=== PATIENT | female | born 1935 | race Caucasian/White ===

== ENCOUNTER 2022-08-16 20:04 | Inpatient (IN) | payer MEDICARE, OTHER ==
[~2022-08-16] VITALS: Ht 147.3 cm; Wt 65.8 kg
--- NOTE | 2022-08-16 21:15 | NUR ---
BIB DAUGHTER FOR C/O DEPRESSION AND CRYING. PT AWAKE; FARSI SPEAKING. TOLERATING R/A WELL WITH NO RESP DISTRESS. RR EVEN AND NON LABORED. AMBULATORY WITH STEADY GAIT. SAFETY MEASURES IN PLACE.
--- NOTE | 2022-08-16 21:34 | NUR ---
SLATE PICKER AT PT'S BEDSIDE
[2022-08-16 21:53] LABS: BASOPHILS % (AUTO) 0.3 % (0.0-2.0); HEMATOCRIT 42 % (33-45); HEMOGLOBIN 13.4 g/dL (11.5-14.8); LYMPHOCYTES # (AUTO) 1.8 K/uL (0.8-4.8); LYMPHOCYTES % (AUTO) 26.2 % (20.0-44.0); MEAN CORPUSCULAR HGB CONC 32 g/dl (31.0-36.0); MEAN CORPUSCULAR VOLUME 88 fL (82-100); MONOCYTES # (AUTO) 0.6 K/uL (0.1-1.30); MONOCYTES % (AUTO) 9.4 % (2.0-12.0); NEUTROPHILS # (AUTO) 4.2 K/uL (1.8-8.9); NEUTROPHILS % (AUTO) 62.1 % (43.0-81.0); PLATELET COUNT (AUTO) 196 K/uL (150-450); RED BLOOD CELL COUNT(AUTO) 4.84 MIL/uL (4.0-5.2); WHITE BLOOD COUNT (AUTO) 6.7 K/uL (4.3-11.0)
[2022-08-16 22:14] LABS: ALANINE AMINOTRANSFERASE 163 U/L (12-78); ALBUMIN 3.3 g/dL (3.4-5.0); ALCOHOL, BLOOD < 3 mg/dL (0-0); ALKALINE PHOSPHATASE 161 U/L (46-116); ASPARTATE AMINOTRANSFERASE 79 U/L (15-37); BILIRUBIN,DIRECT 0.1 mg/dL (0.0-0.2); BILIRUBIN,TOTAL 0.5 mg/dL (0.2-1.0); CALCIUM, SERUM 8.6 mg/dL (8.5-10.1); CARBON DIOXIDE 24 mmol/L (21-32); CHLORIDE 108 mmol/L (98-107); CREATININE 1.4 mg/dL (0.6-1.3); GLUCOSE 118 mg/dL (74-106); SODIUM SERUM 138 mmol/L (136-145); TOTAL PROTEIN, SERUM 6.5 g/dL (6.4-8.2); UREA NITROGEN, BLOOD 34 mg/dL (7-18)
--- NOTE | 2022-08-16 22:22 | NUR ---
URINE COLLECTED AND SENT TO LAB
--- NOTE | 2022-08-16 22:27 | NUR ---
COVID ANTIGEN SWAB COLLECTED AND SENT TO LAB
[2022-08-16 22:50] LABS: ACETAMINOPHEN 0 ug/ml (10-30)
[2022-08-16 22:53] LABS: BILIRUBIN,URINE NEGATIVE (NEGATIVE); COLOR,URINE YELLOW (YELLOW); LEUKOCYTE ESTERASE ,URINE NEGATIVE (NEGATIVE); NITRITE, URINE NEGATIVE (NEGATIVE); PH,URINE 5.5 (5.0-8.0); PROTEIN,URINE NEGATIVE (NEGATIVE); UGLUCOSE NEGATIVE (NEGATIVE); UROBILINOGEN,URINE 0.2 EU/dL (0.2)
[2022-08-16] MEDS ORDERED: ATEN100T PO (23:37)
[2022-08-16] MEDS ORDERED: ATOR10TA PO (23:37)
[2022-08-16] MEDS ORDERED: AMLO-213 PO (23:37)
[2022-08-16] MEDS ORDERED: MEMA10TA PO (23:37)
[2022-08-16] MEDS ORDERED: OLME20TA13 PO (23:38)
[2022-08-16] MEDS ORDERED: HYDR12.55 PO (23:38)
[2022-08-16] MEDS ORDERED: ESCI5TAB PO (23:38)
[2022-08-16] MEDS ORDERED: DONE10TA11 PO (23:38)
[2022-08-16] MEDS ORDERED: LEVO75TA7 PO (23:38)
--- NOTE | 2022-08-17 00:03 | NUR ---
ART CRISIS TEAM AT PT'S BEDSIDE
--- NOTE | 2022-08-17 00:25 | NUR ---
The patient was placed on a 5150 for GD by [facility] and admitted to [facility] under the care of Dr. Kathleen
--- NOTE | 2022-08-17 01:28 | NUR ---
PT WAS TRANSFERRED TO [facility] IN STABLE CONDITION. REPORT GIVEN TO ALTON VALLEJO
[2022-08-17 01:30] VITALS: BP 163/81
--- NOTE | 2022-08-17 01:30 | NUR ---
GPS ADMISSION NOTE, RECEIVED PATIENT FROM HOME / [facility].. PATIENT ARRIVED ON THIS UNIT AT 0130 VIA WHEELCHAIR WITH 1 DATA COMMUNICATIONS SOFTWARE CONSULTANT ESCORT. PATIENT ADMITTED ON A 5150 HOLD FOR GD. PER HOLD PATIENT WAS BROUGHT TO [facility].R. BY GRAND DAUGHTER DUE TO NOT EATING AND TRYING TO LEAVE THE HOUSE. PATIENT STATES SHE IS LOOKING FOR HER PARENTS. PATIENT IS NOT ABLE TO PROVIDE FOR HER FOOD, GROUP HOME, OF CLOTHING DUE TO HER MENTAL ILLNESS AND HER FAMILY IS NOT ABLE TO PROVIDE THE SAME DUE TO HER BEHAVIOR. THE 5150 WAS REVIEWED AND THE DOCUMENTATION IN THE 5150 HOLD APPEARS TO REFLECT THE PRESENTATION OF THE PATIENT. UPON FACE TO FACE ASSESSMENT PATIENT IS NOTED TO BEING HYPERVERBAL, DISHEVELED, DISORGANIZED, CONFUSED, UNCOOPERATIVE, AND NEEDS REDIRECTION. PATIENT IS CURRENTLY LYING IN BED AWAKE, HAS NO S/S OR COMPLAINTS OF PAIN AND IS FARSI SPEAKING. PATIENT IS DISPLAYING NO S/S OF APPARENT DISTRESS. PATIENT BREATHING IS UNLABORED WITH EQUAL RISE AND FALL OF THE CHEST. PATIENT IS ALERT AND ORIENTATED X 1 ON ROOM AIR. PATIENT ASSISTED WITH TURING AND REPOSITIONING Q2HR AND PRN FOR COMFORT AND CIRCULATION. PATIENT HAS NO NEEDS AT THIS TIME. PATIENT DENIES SUICIDE IDEATIONS AND HOMICIDAL IDEATIONS AT THIS TIME. PATIENT REFUSED TO SIGNS ANY PAPER WORK. PATIENT ADVISED OF HER HOLD AND PATIENT RIGHTS BOOKLET GIVEN. PATIENT IS UNDER THE PSYCHIATRIC CARE OF DR. CARL AND THE MEDICAL CARE OF NATAN MUHAMMAD NP. PATIENT BELONGINGS WERE INVENTORIED AND CHECKED FOR CONTRABAND. ALL CONTRABAND REMOVED AND STORED IN PATIENT HALLWAY LOCKER. PATIENT ADVANCED DIRECTIVES PREFERENCE, IMMUNIZATIONS QUESTIONER, NECESSARY PAPERWORK COMPLETED. PATIENT REFUSED SKIN ASSESSMENT. PATIENT ORIENTATED TO ROOM, FLOOR, AND STAFF WITH ALL QUESTIONS ANSWERED. PATIENT EDUCATED ON THE USE OF THE CALL COULTER. PATIENT BED SIDE RAILS ARE UP X 2 FOR SAFETY. PATIENT BED IS LOCKED, LOW AND I WILL CONTINUE TO MONITOR THIS PATIENT Q 15 MIN WITH THE HELP OF STAFF TO MAINTAIN SAFETY.
[2022-08-17] MEDS ORDERED: MAGNESIUM HYDROXIDE 30 ML UDC PO PRN (02:00)
[2022-08-17] MEDS ORDERED: ACETAMINOPHEN 325 MG TABLET PO PRN (02:00)
[2022-08-17] MEDS ORDERED: LORAZEPAM 0.5 MG TABLET PO PRN (02:00)
[2022-08-17] MEDS ORDERED: BLOOD SUGAR DIAGNOSTIC 1 EACH STRIP IN ONE (02:00)
[2022-08-17] MEDS ORDERED: MAG HYDROX/AL HYDROX/SIMETH 30 ML UDC PO PRN (02:00)
[2022-08-17] MEDS ORDERED: Z GUARD REMEDY 4 OZ OINT TP PRN (06:30)
[2022-08-17 08:00] VITALS: BP 150/71
[2022-08-17] MEDS: LEVOTHYROXINE SODIUM 75 MCG TABLET PO SCH (09:14)
[2022-08-17] MEDS: MEMANTINE HCL 5 MG TABLET PO SCH ×2 (09:14→16:28)
[2022-08-17] MEDS: AMLODIPINE BESYLATE 10 MG TABLET PO SCH (09:15)
[2022-08-17] MEDS: ATENOLOL 50 MG TABLET PO SCH (09:15)
[2022-08-17] MEDS: LOSARTAN POTASSIUM 50 MG TABLET PO SCH (09:15)
[2022-08-17] MEDS: ATORVASTATIN 10 MG TABLET PO SCH (09:16)
[2022-08-17] MEDS: ENSURE ENLIVE CHOC 237 ML CAN PO SCH ×2 (09:16→16:28)
--- NOTE | 2022-08-17 12:25 | NUR ---
MIMA Initial Discharge Plan: Patient [place] resides [address] [place] [address]. MIMA will speak to patient's granddaughter Bryan ([phone]) to gather further collateral and discuss treatment and discharge plan. MIMA will work with the MD, treatment plan, and family to help coordinate appropriate discharge.
--- NOTE | 2022-08-17 12:26 | NUR ---
Treatment Plan: Patient refused to sign treatment plan due to confusion.
--- NOTE | 2022-08-17 12:26 | NUR ---
MIMA Clinical Note: Pt placed on a 5150 hold due to GD. Pt was brought to the hospital due to family not being able to care for pt at home. Patient currently resides [address] [place] [address]. MIMA will speak to patient's granddaughter Bryan ([phone]) to gather further collateral and discuss treatment and discharge plan.
--- NOTE | 2022-08-17 13:51 | NUR ---
MIMA Family Contact: MIMA spoke with patient's granddaughter Bryan ([phone]) and discussed treatment plan and discharge plan. MIMA gathered collateral from granddaughter. She stated that pt lives with her sister. She reported that pt's appetite has been declining for the past month. She stated pt has been confused at home and has been walking out in the middle of the night. She reported pt has been experiencing visual/auditory hallucinations. She shared pt has "never" made statements of suicidal thoughts. She reported pt requires 24 hour assistance and stated she would want pt to go to nursing facility specifically [facility]. MIMA educated family on 5150/5250 legal status. MIMA will continue to work with pt and family.
[2022-08-17 16:00] VITALS: BP 138/65
[2022-08-17 20:00] VITALS: BP 118/62
--- NOTE | 2022-08-17 20:57 | NUR ---
RN NOTES: PATIENT SITTING UP IN KELLIE CHAIR ,NO S/SX OF ACUTE DISTRESS NOTED,DEPRESSED EASILY AGITATED,DISORGANIZED,GUARDED PARANOID,ANXIOUS POOR JUDGEMENT INSIGHT AND IMPULSE CONTROL, NEEDY, DEMENDING ,NEEDS FREQUENT REDIRECTION, ALL NEEDS ATTENDED AND ANTICIPATED, DENIES SI/HI AT THIS TIME.ENCOURAGE TO VERBALIZED ANY FEELING OR CONCERN, SAFETY MEASURES IN PLACE. WILL CONTINUE TO MONITOR .
[2022-08-17] MEDS: MIRTAZAPINE 15 MG TABLET PO SCH (21:34)
[2022-08-17] MEDS: DONEPEZIL 5 MG TABLET PO SCH (21:34)
[2022-08-18] MEDS: LEVOTHYROXINE SODIUM 75 MCG TABLET PO SCH (07:51)
[2022-08-18 08:00] VITALS: BP 157/87
[2022-08-18] MEDS: ENSURE ENLIVE CHOC 237 ML CAN PO SCH ×2 (08:02→17:04)
[2022-08-18] MEDS: MEMANTINE HCL 5 MG TABLET PO SCH ×2 (08:47→16:48)
[2022-08-18] MEDS: AMLODIPINE BESYLATE 10 MG TABLET PO SCH (08:47)
[2022-08-18] MEDS: LOSARTAN POTASSIUM 50 MG TABLET PO SCH (08:48)
[2022-08-18] MEDS: ATORVASTATIN 10 MG TABLET PO SCH (08:48)
[2022-08-18] MEDS: ATENOLOL 50 MG TABLET PO SCH (08:48)
[2022-08-18 14:55] LABS: BASOPHILS % (AUTO) 0.2 % (0.0-2.0); EOSINOPHILS % (AUTO) 2.7 % (0.0-6.0); HEMATOCRIT 47 % (33-45); HEMOGLOBIN 14.8 g/dL (11.5-14.8); LYMPHOCYTES % (AUTO) 14.3 % (20.0-44.0); MEAN CORPUSCULAR HGB CONC 32 g/dl (31.0-36.0); MEAN CORPUSCULAR VOLUME 88 fL (82-100); MONOCYTES # (AUTO) 0.5 K/uL (0.1-1.30); MONOCYTES % (AUTO) 6.9 % (2.0-12.0); NEUTROPHILS # (AUTO) 5.3 K/uL (1.8-8.9); NEUTROPHILS % (AUTO) 75.9 % (43.0-81.0); PLATELET COUNT (AUTO) 202 K/uL (150-450); RED BLOOD CELL COUNT(AUTO) 5.36 MIL/uL (4.0-5.2)
[2022-08-18 15:15] LABS: ALBUMIN 3.5 g/dL (3.4-5.0); BILIRUBIN,DIRECT 0.2 mg/dL (0.0-0.2); BILIRUBIN,TOTAL 0.8 mg/dL (0.2-1.0); CALCIUM, SERUM 9.5 mg/dL (8.5-10.1); CREATININE 1.2 mg/dL (0.6-1.3); POTASSIUM 4.5 mmol/L (3.5-5.1)
[2022-08-18 15:25] LABS: THYROID STIMULATING HORMONE 2.626 uIU/mL (0.358-3.74)
[2022-08-18 16:00] VITALS: BP 147/79
[2022-08-18 20:00] VITALS: BP 138/71
[2022-08-18] MEDS: DONEPEZIL 5 MG TABLET PO SCH (22:41)
[2022-08-18] MEDS: MIRTAZAPINE 15 MG TABLET PO SCH (22:41)
--- NOTE | 2022-08-19 04:36 | NUR ---
The patient is sitting in a chair. She is drowsy, but arousable. She is quiet, alert and oriented X2., able to follow simple commands, calm. She takes all of her medications. No behavioral issues noted. No s/s of distress.
[2022-08-19 08:00] VITALS: BP 143/98
[2022-08-19] MEDS: ENSURE ENLIVE CHOC 237 ML CAN PO SCH ×2 (08:04→17:07)
[2022-08-19] MEDS: LEVOTHYROXINE SODIUM 75 MCG TABLET PO SCH (08:04)
[2022-08-19] MEDS: MEMANTINE HCL 5 MG TABLET PO SCH ×2 (08:44→17:07)
[2022-08-19] MEDS: ATENOLOL 50 MG TABLET PO SCH (08:44)
[2022-08-19] MEDS: ATORVASTATIN 10 MG TABLET PO SCH (08:45)
[2022-08-19] MEDS: LOSARTAN POTASSIUM 50 MG TABLET PO SCH (08:45)
[2022-08-19] MEDS: AMLODIPINE BESYLATE 10 MG TABLET PO SCH (08:45)
[2022-08-19 16:00] VITALS: BP 159/77
[2022-08-19 20:47] VITALS: BP 149/98
[2022-08-19] MEDS: DONEPEZIL 5 MG TABLET PO SCH (21:58)
[2022-08-19] MEDS: MIRTAZAPINE 15 MG TABLET PO SCH (21:59)
[2022-08-19] MEDS: ZOLPIDEM TARTRATE 5 MG TABLET PO PRN (21:59)
--- NOTE | 2022-08-19 22:00 | NUR ---
Pt unable to sleep. Least restrictive measures ineffective. Ambien 5 mg po prn given as ordered. Will continue to monitor.
--- NOTE | 2022-08-19 23:32 | NUR ---
Post 1 hr Ambien effective. Pt asleep easy to arouse. Frequent visual check done for safety. Will continue to monitor.
[2022-08-20] MEDS: LEVOTHYROXINE SODIUM 75 MCG TABLET PO SCH (06:19)
[2022-08-20] MEDS: ENSURE ENLIVE CHOC 237 ML CAN PO SCH ×2 (07:55→16:28)
[2022-08-20 08:00] VITALS: BP 155/80
[2022-08-20] MEDS: MEMANTINE HCL 5 MG TABLET PO SCH ×2 (08:40→16:31)
[2022-08-20] MEDS: AMLODIPINE BESYLATE 10 MG TABLET PO SCH (08:40)
[2022-08-20] MEDS: ATORVASTATIN 10 MG TABLET PO SCH (08:40)
[2022-08-20] MEDS: ATENOLOL 50 MG TABLET PO SCH (08:41)
[2022-08-20] MEDS: LOSARTAN POTASSIUM 50 MG TABLET PO SCH (08:42)
--- NOTE | 2022-08-20 10:57 | NUR ---
RN-CO: Patient has no s/s of discomforts. Denied pain and discomforts. She is confused and disorganized however she is compliant with medications with encouragement. She needs moderate assistance with ADL.I offered fluids and assisted in grooming.
[2022-08-20 16:00] VITALS: BP 156/76
[2022-08-20 20:33] VITALS: BP 142/71
[2022-08-20] MEDS: DONEPEZIL 5 MG TABLET PO SCH (21:03)
[2022-08-20] MEDS: MIRTAZAPINE 15 MG TABLET PO SCH (21:04)
[2022-08-21] MEDS: LEVOTHYROXINE SODIUM 75 MCG TABLET PO SCH (07:00)
[2022-08-21 07:59] LABS: ALBUMIN 3.2 g/dL (3.4-5.0); BILIRUBIN,DIRECT 0.2 mg/dL (0.0-0.2); BILIRUBIN,TOTAL 0.7 mg/dL (0.2-1.0); TOTAL PROTEIN, SERUM 6.6 g/dL (6.4-8.2)
[2022-08-21 08:00] VITALS: BP 145/78
[2022-08-21] MEDS: ENSURE ENLIVE CHOC 237 ML CAN PO SCH ×2 (08:52→17:32)
[2022-08-21] MEDS: ATORVASTATIN 10 MG TABLET PO SCH (08:53)
[2022-08-21] MEDS: LOSARTAN POTASSIUM 50 MG TABLET PO SCH (08:53)
[2022-08-21] MEDS: ATENOLOL 50 MG TABLET PO SCH (08:53)
[2022-08-21] MEDS: AMLODIPINE BESYLATE 10 MG TABLET PO SCH (08:54)
[2022-08-21] MEDS: MEMANTINE HCL 5 MG TABLET PO SCH ×2 (08:54→17:11)
--- NOTE | 2022-08-21 10:26 | NUR ---
SNF Referral: MIMA sent clinicals to Sosa alfonso from [place] ([phone]) for placement. MIMA sent H & P, progress notes, and medication list.
--- NOTE | 2022-08-21 10:31 | NUR ---
SNF Contact: SW received a call from Sosa alfonso from [facility] ([phone]) who stated pt is accepted.
[2022-08-21 16:00] VITALS: BP 129/72
--- NOTE | 2022-08-21 18:57 | NUR ---
RN-NOTES PATIENT IN THE DAY ROOM UP IN THE KELLIE CHAIR.AWAKE,A/OX1,GUARDED,NO ACUTE DISTRESS NOTED.NEEDS MAXIMUM ASSIST WITH ADL'S.COMPLIANT WITH MEDICATIONS. ALL NEEDS ATTENDED AND ANTICIPATED. WILL CONT. MONITORING FOR SAFETY AND BEHAVIOR. WILL ENDORSE TO INCOMING NURSE FOR CONTINUITY OF CARE.
[2022-08-21 21:02] VITALS: BP 133/63
[2022-08-21] MEDS: DONEPEZIL 5 MG TABLET PO SCH (21:19)
[2022-08-21] MEDS: MIRTAZAPINE 15 MG TABLET PO SCH (21:19)
[2022-08-22] MEDS: LEVOTHYROXINE SODIUM 75 MCG TABLET PO SCH (06:21)
[2022-08-22 08:00] VITALS: BP 150/85
[2022-08-22] MEDS: ATORVASTATIN 10 MG TABLET PO SCH (08:10)
[2022-08-22] MEDS: ENSURE ENLIVE CHOC 237 ML CAN PO SCH ×2 (08:10→17:21)
[2022-08-22] MEDS: MEMANTINE HCL 5 MG TABLET PO SCH ×2 (08:10→16:11)
[2022-08-22] MEDS: ATENOLOL 50 MG TABLET PO SCH (08:11)
[2022-08-22] MEDS: AMLODIPINE BESYLATE 10 MG TABLET PO SCH (08:11)
[2022-08-22] MEDS: LOSARTAN POTASSIUM 50 MG TABLET PO SCH (08:11)
[2022-08-22 16:00] VITALS: BP 120/69
--- NOTE | 2022-08-22 18:13 | NUR ---
RN-NOTES PATIENT IN THE HALLWAY KELLIE CHAIR.SLEEPING EASILY AROUSED,A/OX1,GUARDED,NO ACUTE DISTRESS NOTED.FAMILY AT BEDSIDE. NEEDS MAXIMUM ASSIST WITH ADL'S.COMPLIANT WITH MEDICATIONS. ALL NEEDS ATTENDED AND ANTICIPATED. WILL CONT. MONITORING FOR SAFETY AND BEHAVIOR. WILL ENDORSE TO INCOMING NURSE FOR CONTINUITY OF CARE. Addendum: 08/22/22 at 1817 by FLORIDA COE RN CHARTED WITH WRONG PATIENT.
--- NOTE | 2022-08-22 18:18 | NUR ---
RN-NOTES PATIENT IN THE HALLWAY UP IN THE KELLIE CHAIR.AWAKE,A/OX1,GUARDED,NO ACUTE DISTRESS NOTED.NEEDS MAXIMUM ASSIST WITH ADL'S.COMPLIANT WITH MEDICATIONS. ALL NEEDS ATTENDED AND ANTICIPATED. WILL CONT. MONITORING FOR SAFETY AND BEHAVIOR. WILL ENDORSE TO INCOMING NURSE FOR CONTINUITY OF CARE.
--- NOTE | 2022-08-22 19:45 | NUR ---
GPS RN NOTES RECEIVED PATIENT AWAKE IN KELLIE-CHAIR. A/O X1. CONFUSED, GUARDED AND AGITATED. BREATHING EVEN AND NON-LABORED ON ROOM AIR. NO C/O PAIN OR DISCOMFORT. SAFETY PRECAUTIONS IN PLACE. WILL CONTINUE TO MONITOR FOR SAFETY AND BEHAVIOR.
[2022-08-22 20:00] VITALS: BP 148/78
[2022-08-22 20:01] VITALS: BP 147/74
[2022-08-22 20:03] VITALS: BP 148/78
[2022-08-22 20:06] VITALS: BP 148/78
[2022-08-22] MEDS: DONEPEZIL 5 MG TABLET PO SCH (21:12)
[2022-08-22] MEDS: MIRTAZAPINE 15 MG TABLET PO SCH (21:12)
[2022-08-22] MEDS: ZOLPIDEM TARTRATE 5 MG TABLET PO PRN (22:23)
--- NOTE | 2022-08-23 06:28 | NUR ---
GPS RN NOTE PATIENT IN BED ASLEEP, EASY TO AROUSE. A/O X1, CONFUSED, GUARDED, LABILE AND QUIET. NEEDS FREQUENT RE-ORIENTATION. SATURATING WELL IN ROOM AIR. NO CARDIAC OR RESPIRATORY DISTRESS. ALL DUE MEDS GIVEN AND NEEDS ATTENDED. SAFETY PRECAUTIONS MAINTAINED. WILL CONTINUE TO MONITOR Q15 MINS FOR SAFETY AND BEHAVIOR. WILL ENDORSE TO NEXT SHIFT FOR CONTINUITY OF CARE.
[2022-08-23] MEDS: LEVOTHYROXINE SODIUM 75 MCG TABLET PO SCH (06:53)
[2022-08-23 08:00] VITALS: BP 159/94
[2022-08-23] MEDS: ATENOLOL 50 MG TABLET PO SCH (08:27)
[2022-08-23] MEDS: LOSARTAN POTASSIUM 50 MG TABLET PO SCH (08:27)
[2022-08-23] MEDS: AMLODIPINE BESYLATE 10 MG TABLET PO SCH (08:28)
[2022-08-23] MEDS: ATORVASTATIN 10 MG TABLET PO SCH (08:28)
[2022-08-23] MEDS: MEMANTINE HCL 5 MG TABLET PO SCH ×2 (08:28→16:16)
[2022-08-23] MEDS: ENSURE ENLIVE CHOC 237 ML CAN PO SCH ×2 (08:32→17:07)
--- NOTE | 2022-08-23 12:06 | NUR ---
RN-NOTES NOTED PATIENT WITH FACIAL GRIMACES,TYLENOL 650 MG P.O GIVEN PRN ORDER.
[2022-08-23 16:00] VITALS: BP 141/78
[2022-08-23 20:00] VITALS: BP 128/67
[2022-08-23] MEDS: MIRTAZAPINE 15 MG TABLET PO SCH (21:08)
[2022-08-23] MEDS: DONEPEZIL 5 MG TABLET PO SCH (21:08)
[2022-08-24] MEDS: ENSURE ENLIVE CHOC 237 ML CAN PO SCH ×2 (07:58→16:37)
[2022-08-24 08:00] VITALS: BP 140/79
[2022-08-24] MEDS: MEMANTINE HCL 5 MG TABLET PO SCH ×2 (08:00→16:38)
[2022-08-24] MEDS: ATORVASTATIN 10 MG TABLET PO SCH (08:00)
[2022-08-24] MEDS: LEVOTHYROXINE SODIUM 75 MCG TABLET PO SCH (08:00)
[2022-08-24] MEDS: ATENOLOL 50 MG TABLET PO SCH (08:01)
[2022-08-24] MEDS: LOSARTAN POTASSIUM 50 MG TABLET PO SCH (08:01)
[2022-08-24] MEDS: AMLODIPINE BESYLATE 10 MG TABLET PO SCH (08:02)
--- NOTE | 2022-08-24 12:27 | NUR ---
Court Notification: SW contacted pt's daughter Bryan ([phone]) to notify of pt's 1672 hearing.
--- NOTE | 2022-08-24 12:28 | NUR ---
Court Hearing: Patient's court hearing for 2870 was today and it was upheld for GD.
[2022-08-24 16:00] VITALS: BP 100/64
[2022-08-24 20:00] VITALS: BP 116/63
--- NOTE | 2022-08-24 20:15 | NUR ---
RN NOTES: PATIENT RESTING IN ROOM,NO S/SX OF ACUTE DISTRESS NOTED,DEPRESSED EASILY AGITATED,DISORGANIZED,GUARDED PARANOID,ANXIOUS POOR JUDGEMENT INSIGHT AND IMPULSE CONTROL, NEEDY, DEMENDING ,NEEDS FREQUENT REDIRECTION, ALL NEEDS ATTENDED AND ANTICIPATED, DENIES SI/HI AT THIS TIME.ENCOURAGE TO VERBALIZED ANY FEELING OR CONCERN, SAFETY MEASURES IN PLACE. WILL CONTINUE TO MONITOR .
[2022-08-24] MEDS: MIRTAZAPINE 15 MG TABLET PO SCH (21:10)
[2022-08-24] MEDS: DONEPEZIL 5 MG TABLET PO SCH (21:10)
[2022-08-25 08:00] VITALS: BP 122/71
[2022-08-25] MEDS: ENSURE ENLIVE CHOC 237 ML CAN PO SCH ×2 (08:18→17:33)
[2022-08-25] MEDS: MEMANTINE HCL 5 MG TABLET PO SCH ×2 (08:20→17:33)
[2022-08-25] MEDS: AMLODIPINE BESYLATE 10 MG TABLET PO SCH (08:20)
[2022-08-25] MEDS: LOSARTAN POTASSIUM 50 MG TABLET PO SCH (08:20)
[2022-08-25] MEDS: LEVOTHYROXINE SODIUM 75 MCG TABLET PO SCH (08:21)
[2022-08-25] MEDS: ATENOLOL 50 MG TABLET PO SCH (08:21)
[2022-08-25] MEDS: ATORVASTATIN 10 MG TABLET PO SCH (08:22)
[2022-08-25 16:00] VITALS: BP 135/72
[2022-08-25 20:45] VITALS: BP 128/75
[2022-08-25] MEDS: MIRTAZAPINE 15 MG TABLET PO SCH (21:28)
[2022-08-25] MEDS: DONEPEZIL 5 MG TABLET PO SCH (21:29)
[2022-08-26] MEDS: LEVOTHYROXINE SODIUM 75 MCG TABLET PO SCH (06:50)
[2022-08-26] MEDS: ENSURE ENLIVE CHOC 237 ML CAN PO SCH ×2 (07:57→17:17)
[2022-08-26 08:00] VITALS: BP 146/68
[2022-08-26] MEDS: AMLODIPINE BESYLATE 10 MG TABLET PO SCH (08:05)
[2022-08-26] MEDS: ATORVASTATIN 10 MG TABLET PO SCH (08:05)
[2022-08-26] MEDS: MEMANTINE HCL 5 MG TABLET PO SCH ×2 (08:05→16:09)
[2022-08-26] MEDS: ATENOLOL 50 MG TABLET PO SCH (08:06)
[2022-08-26] MEDS: LOSARTAN POTASSIUM 50 MG TABLET PO SCH (08:06)
[2022-08-26 16:00] VITALS: BP 121/73
--- NOTE | 2022-08-26 19:15 | NUR ---
GPS RN NOTE RECEIVED PT SITTING IN KELLIE CHAIR, AWAKE. PT A/O X1, FARSI SPEAKING. NO S/S OF RESPIRATORY DISTRESS, NO S/S OF PAIN. PT IS CALM, GUARDED, COOPERATIVE. SAFETY PRECAUTIONS IMPLEMENTED. WILL CONTINUE TO MONITOR PATIENT FOR SAFETY.
[2022-08-26 21:00] VITALS: BP 129/73
[2022-08-26] MEDS: MIRTAZAPINE 15 MG TABLET PO SCH ×2 (21:52→22:00)
[2022-08-26] MEDS: DONEPEZIL 5 MG TABLET PO SCH ×2 (21:52→22:00)
--- NOTE | 2022-08-26 22:35 | NUR ---
GPS RN NOTE NETWORK SYSTEMS ENGINEER PLACED PT IN BED AT 2100. PATIENT NOTED VERY DROWSY BUT RESPONSIVE TO TACTILE STIMULI. PATIENT ABLE TO MOVE ALL EXTREMITIES EXCEPT FOR LEFT ARM. VITAL SIGNS TAKEN AND RECORDED: BP-149/68, P-83, R19, T-98.1, O2 SAT- 98% ON ROOM AIR, BLOOD SUGAR- 150MG/DL. PATIENT HAS SCHEDULED MEDS FOR TONIGHT ARICEPT 10 MG, REMERON 22.5 MG. PT'S MEDS HELD DUE TO PT UNABLE TO AROUSE. HOB ELEVATED, CONTINUE MONITORING PT CLOSELY. 3 RN ASSESSING PT AT BED SIDE. 2256 - PAGED EPIC ON-CALL AWAITING BAND DIRECTOR NIKKIE TO CALL BACK. 2299 - BAND DIRECTOR NIKKIE CALLED BACK. NOTIFIED ABOUT PT'S CHANGE OF CONDITION. BAND DIRECTOR NIKKIE ADVISED TO TRANSFER PT TO EMERGENCY DEPARTMENT FOR WORK UP, AND WHOLE ASSESSMENT DUE TO ALOC. CALLED ER SPOKE TO EDWARD, AND NOTIFIED ALTON LEON ABOUT PT'S CONDITION, AND TRANSFER PER BAND DIRECTOR'S ORDER. USER INTERFACE ARTIST KALANI ALSO CALLED, AND MADE AWARE OF SITUATION. 2316 - CHARGE NURSE NOVEM CALLED DR CARL, AND MADE AWARE OF PT'S TRANSFER TO ER. DR CARL STATED TO CONTINUE HOLD 5250, UNLESS PT IS ADMITTED TO ACUTE CARE THEN DISCONTINUE HOLD. 2330 - PT LEFT GPS UNIT VIA GURNEY TO ER ACCOMPANIED BY RN AND 2 NETWORK SYSTEMS ENGINEER. PT'S VS STABLE. REPORT GIVEN TO ER NURSE EDWARD, AND ER DOCTOR SAVANNAH. DISCHARGE COMPLETED, AND EXIT CARE GIVEN TO ALTON LEON. PT'S BELONGINGS HANDED TO ALTON LEON, AND BELONGING LIST SIGNED. 0 - PT'S GRANDDAUGHTER ABENA CALLED, AND WAS INFORMED ABOUT PT'S CHANGE OF SITUATION, AND TRANSFER TO ER.
--- NOTE | 2022-08-28 08:07 | NUR ---
SW Transfer Note: Patient was transferred to the medical floor due to CVA. Patient's hold was discontinued. Patient was accepted at [facility] [address] [address] ([phone]). Patients daughter Bryan ([phone]) was aware.
== END 2022-08-26 23:43 | disposition short-term general hospital (02) | DRG 881 ==
LOC: ER 20:06 → GPS 08-17 01:01
PROVIDERS: ADMIT Psychiatry & Neurology Psychiatry; ATTEND Student in an Organized Health Care Education/Training Program
DX: F32.A Depression, unspecified (principal); N17.0 Acute kidney failure with tubular necrosis; I63.9 Cerebral infarction, unspecified; F03.918 Unspecified dementia, unspecified severity, with other behavioral disturbance; I10 Essential (primary) hypertension; E03.9 Hypothyroidism, unspecified; E78.5 Hyperlipidemia, unspecified; E88.09 Other disorders of plasma-protein metabolism, not elsewhere classified; R62.7 Adult failure to thrive; Z79.899 Other long term (current) drug therapy; R74.01 Elevation of levels of liver transaminase levels; R79.89 Other specified abnormal findings of blood chemistry
CPT/HCPCS: 36415; 80048-TC; 80061-TC; 80076-TC; 82962-TC; 84443-TC; 85025-TC; 87081-TC; 97112-TC; 97116-TC; 97530-TC; C9803; G0480

== ENCOUNTER 2022-08-26 23:34 | Emergency (ER) | payer MEDICARE, OTHER ==
[~2022-08-26] VITALS: Ht 160 cm; Wt 58.1 kg
[~2022-08-26 23:34] MED LIST: AMLO-213 PO; ATEN100T PO; ATOR10TA PO; DONE10TA11 PO; HYDR12.55 PO; LEVO75TA7 PO; MEMA10TA PO; OLME20TA13 PO
--- NOTE | 2022-08-26 23:34 | NUR ---
[facility] FOR ALTERED PER STAFF " DIFF TO AROUSE". PATIENT PLACED IN BED 08 MD MADE AWARE. PATIENT PLACED ON MONITOR AND POX.
--- NOTE | 2022-08-26 23:36 | NUR ---
CODE STROKE ACTIVATED
[2022-08-26] MEDS ORDERED: ALTEPLASE 100 MG/VIAL VIAL IV ONE (23:38)
--- NOTE | 2022-08-26 23:38 | NUR ---
BLOOD COLLECTED AND SENT TO LAB
--- NOTE | 2022-08-26 23:40 | NUR ---
PATIENT SENT TO CT
[2022-08-26 23:58] LABS: BASOPHILS % (AUTO) 0.2 % (0.0-2.0); EOSINOPHILS % (AUTO) 3.2 % (0.0-6.0); HEMATOCRIT 45 % (33-45); HEMOGLOBIN 13.7 g/dL (11.5-14.8); LYMPHOCYTES # (AUTO) 1.4 K/uL (0.8-4.8); LYMPHOCYTES % (AUTO) 21.4 % (20.0-44.0); MEAN CORPUSCULAR HGB CONC 31 g/dl (31.0-36.0); MEAN CORPUSCULAR VOLUME 91 fL (82-100); MONOCYTES # (AUTO) 0.7 K/uL (0.1-1.30); NEUTROPHILS # (AUTO) 4.4 K/uL (1.8-8.9); NEUTROPHILS % (AUTO) 65.2 % (43.0-81.0); PLATELET COUNT (AUTO) 218 K/uL (150-450); WHITE BLOOD COUNT (AUTO) 6.8 K/uL (4.3-11.0)
[2022-08-27] MEDS ORDERED: IV NS 0.9% 1,000 ML IV PRN
[2022-08-27] MEDS ORDERED: IV NS 0.9% 250 ML IV ONE (00:02)
[2022-08-27] MEDS ORDERED: IOHEXOL-350 100 ML VIAL IV ONE (00:02)
[2022-08-27 00:03] LABS: CALCIUM, SERUM 9.1 mg/dL (8.5-10.1); CARBON DIOXIDE 28 mmol/L (21-32); CHLORIDE 101 mmol/L (98-107); CREATININE 1.7 mg/dL (0.6-1.3); GLUCOSE 155 mg/dL (74-106); POTASSIUM 4.6 mmol/L (3.5-5.1); SODIUM SERUM 137 mmol/L (136-145); UREA NITROGEN, BLOOD 52 mg/dL (7-18)
[2022-08-27] MEDS ORDERED: CT SWABBABLE VALVE TRANS SET 1 EA INFUS.SET MC ONE (00:03)
--- NOTE | 2022-08-27 00:03 | NUR ---
PATIENT BACK FROM CT
--- NOTE | 2022-08-27 00:04 | NUR ---
emt at bedside for ekg
--- NOTE | 2022-08-27 00:05 | NUR ---
NEUROLOGIST ON TELENEURO
--- NOTE | 2022-08-27 00:14 | NUR ---
ON PHONE WITH NEUROLOGIST
--- NOTE | 2022-08-27 00:48 | NUR ---
RECEIVED A CALL FROM [facility]. WANTS TO TALK TO BRADLEY SANTIAGO. CONNECTED THE CALL TO DR BENNETT
--- NOTE | 2022-08-27 00:55 | NUR ---
TPA BOLUS INFUSION INITIATED.
[2022-08-27] MEDS ORDERED: ALTEPLASE 100 MG/VIAL VIAL IV ONE (01:00)
[2022-08-27] MEDS ORDERED: ALTEPLASE BOLUS DOSE IV ONE (01:00)
--- NOTE | 2022-08-27 01:30 | NUR ---
UPDATED PATIENTS GRAND DAUGHTER.
--- NOTE | 2022-08-27 02:50 | NUR ---
CALL FROM [facility]. PT ACCEPTED TO [facility] BY DR HART. NO CCT TRANSPORT AVAILABLE PER MJ. 911 CALED FOR EMERGENCY IFT TO [facility] CCT.
--- NOTE | 2022-08-27 02:58 | NUR ---
PATIENT BEING TRANSFERRED TO [facility] VIA [facility].
[2022-08-27 03:00] VITALS: BP 127/68
--- NOTE | 2022-08-27 03:16 | NUR ---
report given to yuri patino at [facility]
--- NOTE | 2022-08-28 08:08 | NUR ---
SW Transfer Note: Patient was transferred to the medical floor due to CVA. Patient's hold was discontinued. Patient was accepted at [facility] [address] [address] ([phone]). Patients daughter Bryan ([phone]) was aware.
== END 2022-08-27 03:01 | disposition short-term general hospital (02) ==
LOC: ER 23:37
DX: I63.9 Cerebral infarction, unspecified (principal); R41.89 Other symptoms and signs involving cognitive functions and awareness; R29.722 NIHSS score 22; Z20.822 Contact with and (suspected) exposure to COVID-19; I48.91 Unspecified atrial fibrillation; Z79.899 Other long term (current) drug therapy; I10 Essential (primary) hypertension; E78.5 Hyperlipidemia, unspecified; F03.90 Unspecified dementia, unspecified severity, without behavioral disturbance, psychotic disturbance, mood disturbance, and anxiety
CPT/HCPCS: J2997; Q9967; 36415; 70450-TC; 70496-TC; 70498-TC; 71045-TC; 80048-TC; 84484-TC; 85025-TC; 85730-TC; C9803; J7050